=== PATIENT | male | born 1985 | race Caucasian/White ===

== ENCOUNTER 2018-09-03 11:45 | Emergency (ER) | payer MEDICAID ==
[~2018-09-03] VITALS: Ht 172.7 cm; Wt 72.6 kg
[2018-09-03 11:55] VITALS: BP_SYST 154
== END 2018-09-03 13:24 | disposition home or self-care (01) ==
LOC: SED 11:45
DX: L03.211 Cellulitis of face (principal)
CPT/HCPCS: 99283